=== PATIENT | male | born 1955 | race Caucasian/White ===

== ENCOUNTER 2022-03-08 18:27 | Inpatient (IN) ==
[2022-03-08 19:38] LABS: Basophils % 1.3 %; Hematocrit 33.6 % (37.5-50.1); Hemoglobin 11.5 g/dL (12.9-16.9); Immature Granulocytes % 2.6 % (0-4); Immature Platelets 4.9 % (1.1-6.1); Lymphocytes # 0.1 K/mcL (0.6-4.6); Mean Corpuscular HGB Conc 34.2 g/dL (31.6-35.5); Mean Corpuscular Hemoglobin 30.3 pg (28.0-33.3); Mean Corpuscular Volume 88.7 fL (83.0-100.0); Mean Platelet Volume 10.1 fL (9.4-12.4); Monocytes # 0.3 K/mcL (0.0-1.3); Monocytes % 10.7 %; Red Blood Count 3.79 M/mcL (4.19-5.50); Red Cell Distribution Width 13.3 % (11.5-14.5); Segmented Neutrophils % 79.4 %; White Blood Count 2.3 K/mcL (4.3-11.1)
[2022-03-08 19:51] LABS: Neutrophils # 1.8 K/mcL (1.6-8.9); Platelet Count 73 K/mcL (140-400)
[2022-03-08 19:53] LABS: Platelet Estimate Decreased (Normal)
[2022-03-08 19:58] LABS: Alanine Aminotransferase 8 Units/L (7-52); Albumin 3.4 g/dL (3.5-5.7); Albumin/Globulin Ratio 1.1 (1.1-2.2); Alkaline Phosphatase 65 Units/L (34-104); Aspartate Amino Transferase 9 Units/L (13-39); BUN/Creatinine Ratio 26 (6-26); Bilirubin,Total 0.9 mg/dL (0.3-1.0); Blood Urea Nitrogen 28 mg/dL (8-23); Calcium 9.3 mg/dL (8.6-10.3); Carbon Dioxide 22 mEq/L (23-29); Chloride 96 mEq/L (98-107); Glucose 115 mg/dL (70-105); Osmolality,Calculated 272 (280-300); Potassium 4.2 mEq/L (3.5-5.1); Sodium 128 mEq/L (136-145); Total Protein 6.4 g/dL (6.4-8.9); Troponin I < 0.03 ng/mL (< 0.04)
[2022-03-08 20:19] LABS: Amorphous Sediment,Urine Few per hpf (None-Few); Bacteria,Urine Few per hpf (None-Few); Bilirubin,Urine Negative (Negative); Blood,Urine Negative (Negative); Clarity,Urine Turbid (Clear); Color,Urine Orange (Yellow); Glucose,Urine (UA) 30 mg/dL (Normal); Hyaline Casts,Urine Many per lpf (None Seen); Ketones,Urine Negative (Negative); Leukocyte Esterase,Urine Negative (Negative); Mucus,Urine Moderate per lpf (None-Few); Nitrite,Urine Negative (Negative); PH,Urine 5.5 pH Units (5.0-8.0); Protein,Urine 70 mg/dL (Neg-Trace); Specific Gravity,Urine 1.029 (1.010-1.025); Squamous Epithelial Cell,Urine Few per hpf (None-Few); Urobilinogen,Urine Normal (Normal)
[2022-03-08 20:50] LABS: Influenza A PCR Negative (Negative); Influenza B PCR Negative (Negative); Resp. Syncytial Virus PCR Negative (Negative)
[2022-03-08 21:51] LABS: SARS-CoV-2 by PCR (In House) Negative (Negative)
[2022-03-08] MEDS ORDERED: Iopamidol - 370 500 ML MLS IVP ONE (23:06)
[2022-03-08] MEDS ORDERED: 0.9 % Sodium Chloride 1,000 ML IV ONE (23:06)
[2022-03-09] MEDS ORDERED: 0.9 % Sodium Chloride 1,000 ML IV ONE (00:49)
[2022-03-09] MEDS ORDERED: *HR* Heparin 5,000 UNIT/ML VIAL IVP ONE (04:43)
[2022-03-09] MEDS ORDERED: *HR* Heparin 5,000 UNIT/ML VIAL IVP PRN (04:43)
[2022-03-09] MEDS ORDERED: Ondansetron ODT 4 MG TAB.RAPDIS SL PRN (04:43)
[2022-03-09] MEDS ORDERED: Melatonin 3 MG TABLET PO PRN (04:43)
[2022-03-09] MEDS ORDERED: Naloxone 0.4 MG/ML INJ IVP PRN (04:43)
[2022-03-09] MEDS ORDERED: *HR* Metoprolol 5 MG/5 ML VIAL IVP ONE (05:06)
[2022-03-09] MEDS: 0.9 % Sodium Chloride 1,000 ML IVC SCH ×2 (05:15→17:10)
[2022-03-09] MEDS: Heparin 25,000UNIT/250ML 1/2NS 25,000 UNIT/250 ML IV.SOLN IVC SCH (05:15)
[2022-03-09] MEDS: Sucralfate 1 GM TABLET PO SCH ×2 (07:48→17:06)
[2022-03-09] MEDS ORDERED: Metoprolol XL (24 HR) Succ 25 MG TAB.ER.24H PO ONE (08:23)
[2022-03-09 08:25] LABS: Red Cell Distribution Width 13.4 % (11.5-14.5)
[2022-03-09 08:27] LABS: Hematocrit 30.9 % (37.5-50.1); Hemoglobin 10.5 g/dL (12.9-16.9); Immature Platelets 4.1 % (1.1-6.1); Mean Corpuscular Hemoglobin 30.5 pg (28.0-33.3); Mean Corpuscular Volume 89.8 fL (83.0-100.0); Mean Platelet Volume 10.3 fL (9.4-12.4); Red Blood Count 3.44 M/mcL (4.19-5.50); White Blood Count 1.6 K/mcL (4.3-11.1)
[2022-03-09 08:33] LABS: Heparin anti-factor XA UFH 0.22 IU/mL (0.30-0.70); INR 1.5
[2022-03-09 08:45] LABS: BUN/Creatinine Ratio 31 (6-26); Blood Urea Nitrogen 25 mg/dL (8-23); Calcium 8.8 mg/dL (8.6-10.3); Carbon Dioxide 20 mEq/L (23-29); Chloride 100 mEq/L (98-107); Glucose 97 mg/dL (70-105); Osmolality,Calculated 272 (280-300); Potassium 3.7 mEq/L (3.5-5.1); Sodium 129 mEq/L (136-145)
[2022-03-09] MEDS ORDERED: lisinopriL 5 MG TABLET PO SCH (09:00)
[2022-03-09] MEDS ORDERED: Metoprolol XL (24 HR) Succ 25 MG TAB.ER.24H PO SCH (09:00)
[2022-03-09] MEDS: Metoprolol XL (24 HR) Succ 25 MG TAB.ER.24H PO SCH (09:21)
[2022-03-09] MEDS: *HR* OxyCODONE/APAP 5/325 TABLET PO PRN ×2 (11:50→18:13)
[2022-03-09 13:19] LABS: C.difficile Toxin A/B Gene PCR Not detected (Not detect); Campylobacter by PCR Not detected (Not detect); Plesiomonas shigelloides PCR Not detected (Not detect); Salmonella PCR Not detected (Not detect); Vibrio PCR Not detected (Not detect)
[2022-03-09 13:20] LABS: Adenovirus F 40/41 PCR Not detected (Not detect); Astrovirus PCR Not detected (Not detect); Cryptosporidium by PCR Not detected (Not detect); Cyclospora cayetanensis PCR Not detected (Not detect); Entamoeba histolytica PCR Not detected (Not detect); Enteroaggregative E.coli(EAEC) Not detected (Not detect); Enteropathogenic E.coli(EPEC) Not detected (Not detect); Enterotoxigenic E.coli (ETEC) Not detected (Not detect); Giardia lamblia PCR Not detected (Not detect); Norovirus GI/GII PCR Not detected (Not detect); Rotavirus A PCR Not detected (Not detect); Sapovirus PCR Not detected (Not detect); Shig/EnteroinvasiveE coli EIEC Not detected (Not detect); Shigalike tox-prod E coli STEC Not detected (Not detect); Vibrio cholerae PCR Not detected (Not detect); Yersinia enterocolitica PCR Not detected (Not detect)
[2022-03-09] MEDS: *HR* Metoprolol 5 MG/5 ML VIAL IVP PRN (13:27)
[2022-03-09] MEDS: *HR* Heparin 5,000 UNIT/ML VIAL IVP PRN (13:30)
[2022-03-09 13:51] LABS: Magnesium 1.5 mg/dL (1.6-2.6)
[2022-03-09] MEDS: *HR* Digoxin 0.5 MG/2 ML AMPUL IVP SCH (18:17)
[2022-03-09] MEDS: Famotidine 20 MG TABLET PO SCH (20:05)
[2022-03-10] MEDS: *HR* Digoxin 0.5 MG/2 ML AMPUL IVP SCH ×2 (00:14→05:53)
[2022-03-10] MEDS: *HR* OxyCODONE/APAP 5/325 TABLET PO PRN ×2 (02:51→16:58)
[2022-03-10] MEDS: Heparin 25,000UNIT/250ML 1/2NS 25,000 UNIT/250 ML IV.SOLN IVC SCH (03:54)
[2022-03-10 06:14] LABS: Red Cell Distribution Width 13.6 % (11.5-14.5)
[2022-03-10 06:16] LABS: Hematocrit 24.6 % (37.5-50.1); Hemoglobin 8.5 g/dL (12.9-16.9); Immature Platelets 3.2 % (1.1-6.1); Mean Corpuscular HGB Conc 34.6 g/dL (31.6-35.5); Mean Corpuscular Volume 89.8 fL (83.0-100.0); Mean Platelet Volume 9.9 fL (9.4-12.4); Monocytes # 0.1 K/mcL (0.0-1.3); Red Blood Count 2.74 M/mcL (4.19-5.50); White Blood Count 1.5 K/mcL (4.3-11.1)
[2022-03-10 06:18] LABS: Platelet Count 56 K/mcL (140-400)
[2022-03-10 06:35] LABS: BUN/Creatinine Ratio 27 (6-26); Blood Urea Nitrogen 14 mg/dL (8-23); Calcium 7.6 mg/dL (8.6-10.3); Carbon Dioxide 22 mEq/L (23-29); Chloride 99 mEq/L (98-107); Glucose 76 mg/dL (70-105); Magnesium 1.7 mg/dL (1.6-2.6); Osmolality,Calculated 261 (280-300); Phosphorous 2.5 mg/dL (2.7-4.5); Potassium 3.2 mEq/L (3.5-5.1); Sodium 126 mEq/L (136-145)
[2022-03-10 06:43] LABS: Lymphocytes # 0.2 K/mcL (0.6-4.6); Neutrophils # 1.2 K/mcL (1.6-8.9); Platelet Estimate Decreased (Normal)
[2022-03-10] MEDS: *HR* Heparin 5,000 UNIT/ML VIAL IVP PRN (06:53)
[2022-03-10] MEDS ORDERED: ONDANSETRON 8 MG PO PRN (07:46)
[2022-03-10] MEDS: Loratadine 10 MG TABLET PO SCH (09:04)
[2022-03-10] MEDS: Metoprolol XL (24 HR) Succ 25 MG TAB.ER.24H PO SCH (09:04)
[2022-03-10] MEDS: Sucralfate 1 GM TABLET PO SCH ×2 (09:04→16:57)
[2022-03-10] MEDS: predniSONE 5 MG TABLET PO SCH ×2 (09:04→21:10)
[2022-03-10] MEDS ORDERED: levoFLOXacin 750 MG/150 ML 750 MG/150 ML BAG IVPB ONE (15:03)
[2022-03-10] MEDS: Magnesium Oxide 400 MG TABLET PO SCH ×2 (15:56→21:08)
[2022-03-10] MEDS: Budesonide Neb 0.5 MG/2 ML IH SCH ×2 (16:02→21:34)
[2022-03-10] MEDS: Ipratropium/Albuterol Neb 3 ML IH SCH ×2 (16:03→21:33)
[2022-03-10] MEDS ORDERED: 0.9 % Sodium Chloride 250 ML ONE (18:38)
[2022-03-10] MEDS ORDERED: Ringers Solution, Lactated 500 ML IVC ONE (19:24)
[2022-03-10] MEDS: Albumin Human 5% 12.5 GM/250 ML IV.SOLN IVC SCH (19:38)
[2022-03-10] MEDS: Famotidine 20 MG TABLET PO SCH (21:10)
[2022-03-10] MEDS: *HR* Rivaroxaban 15 MG TABLET PO SCH (21:10)
[2022-03-11] MEDS: Albumin Human 5% 12.5 GM/250 ML IV.SOLN IVC SCH (00:11)
[2022-03-11 01:24] LABS: Mean Corpuscular Volume 88.7 fL (83.0-100.0)
[2022-03-11 01:26] LABS: Hematocrit 22.7 % (37.5-50.1); Hemoglobin 7.9 g/dL (12.9-16.9); Immature Platelets 3.2 % (1.1-6.1); Lymphocytes # 0.1 K/mcL (0.6-4.6); Mean Corpuscular HGB Conc 34.8 g/dL (31.6-35.5); Mean Corpuscular Hemoglobin 30.9 pg (28.0-33.3); Mean Platelet Volume 10.2 fL (9.4-12.4); Monocytes # 0.1 K/mcL (0.0-1.3); Red Blood Count 2.56 M/mcL (4.19-5.50); Red Cell Distribution Width 13.3 % (11.5-14.5); White Blood Count 1.5 K/mcL (4.3-11.1)
[2022-03-11 01:56] LABS: BUN/Creatinine Ratio 21 (6-26); Blood Urea Nitrogen 11 mg/dL (8-23); Calcium 7.7 mg/dL (8.6-10.3); Carbon Dioxide 20 mEq/L (23-29); Chloride 97 mEq/L (98-107); Glucose 108 mg/dL (70-105); Magnesium 1.5 mg/dL (1.6-2.6); Osmolality,Calculated 260 (280-300); Phosphorous < 1.0 mg/dL (2.7-4.5); Potassium 3.3 mEq/L (3.5-5.1); Sodium 125 mEq/L (136-145)
[2022-03-11 02:01] LABS: Platelet Count 50 K/mcL (140-400)
[2022-03-11 02:04] LABS: Thyroid Stimulating Hormone 0.505 mcIU/mL (0.340-5.600)
[2022-03-11] MEDS ORDERED: Potassium Phosphate 44 MEQ in 0.9 % Sodium Chloride 250 ML IVPB ONE (02:15)
[2022-03-11 02:18] LABS: Platelet Estimate Decreased (Normal)
[2022-03-11 02:20] LABS: Neutrophils # 1.4 K/mcL (1.6-8.9)
[2022-03-11 02:21] LABS: Dohle Bodies Present (Not Present)
[2022-03-11] MEDS ORDERED: Ringers Solution, Lactated 500 ML IVC ONE (03:30)
[2022-03-11] MEDS: Acetaminophen 325 MG TABLET PO PRN ×3 (03:36→21:53)
[2022-03-11] MEDS: Ipratropium/Albuterol Neb 3 ML IH SCH ×4 (04:33→21:20)
[2022-03-11] MEDS: Phenylephrine 20 MG in 0.9 % Sodium Chloride 250 ML IVC SCH ×4 (05:43→21:21)
[2022-03-11] MEDS: Magnesium Oxide 400 MG TABLET PO SCH ×2 (07:44→21:13)
[2022-03-11] MEDS: Sucralfate 1 GM TABLET PO SCH ×2 (07:44→16:38)
[2022-03-11] MEDS: *HR* Digoxin 0.125 MG TABLET PO SCH (07:44)
[2022-03-11] MEDS: predniSONE 5 MG TABLET PO SCH ×2 (07:45→21:20)
[2022-03-11] MEDS: Loratadine 10 MG TABLET PO SCH (07:45)
[2022-03-11] MEDS: *HR* Rivaroxaban 15 MG TABLET PO SCH (08:34)
[2022-03-11] MEDS: Budesonide Neb 0.5 MG/2 ML IH SCH ×2 (09:54→21:20)
[2022-03-11] MEDS: Cefepime HCl 2,000 MG in 0.9 % Sodium Chloride 20 ML IVP SCH ×2 (10:12→16:38)
[2022-03-11] MEDS ORDERED: Amiodarone Premix 150 MG/100 ML BAG IVPB ONE (10:48)
[2022-03-11] MEDS ORDERED: Amiodarone Premix 360 MG/200 ML BAG IVC ONE (10:48)
[2022-03-11] MEDS: levoFLOXacin 750 MG/150 ML 750 MG/150 ML BAG IVPB SCH (16:38)
[2022-03-11] MEDS: Amiodarone Premix 360 MG/200 ML BAG IVC SCH (18:02)
[2022-03-11] MEDS: Famotidine 20 MG TABLET PO SCH (21:19)
[2022-03-11] MEDS: *HR* OxyCODONE/APAP 5/325 TABLET PO PRN (21:52)
[2022-03-12] MEDS: Cefepime HCl 2,000 MG in 0.9 % Sodium Chloride 20 ML IVP SCH ×4 (00:31→23:40)
[2022-03-12] MEDS: Phenylephrine 20 MG in 0.9 % Sodium Chloride 250 ML IVC SCH ×3 (00:32→06:12)
[2022-03-12 02:42] LABS: Hematocrit 24.5 % (37.5-50.1)
[2022-03-12 02:44] LABS: Hemoglobin 8.6 g/dL (12.9-16.9); Mean Corpuscular HGB Conc 35.1 g/dL (31.6-35.5); Mean Corpuscular Hemoglobin 30.9 pg (28.0-33.3); Mean Corpuscular Volume 88.1 fL (83.0-100.0); Mean Platelet Volume 10.1 fL (9.4-12.4); Monocytes # 0.2 K/mcL (0.0-1.3); Red Blood Count 2.78 M/mcL (4.19-5.50); Red Cell Distribution Width 13.8 % (11.5-14.5); White Blood Count 4.2 K/mcL (4.3-11.1)
[2022-03-12 02:58] LABS: BUN/Creatinine Ratio 20 (6-26); Blood Urea Nitrogen 10 mg/dL (8-23); Calcium 7.8 mg/dL (8.6-10.3); Carbon Dioxide 20 mEq/L (23-29); Chloride 99 mEq/L (98-107); Glucose 115 mg/dL (70-105); Osmolality,Calculated 266 (280-300); Potassium 3.3 mEq/L (3.5-5.1); Sodium 128 mEq/L (136-145)
[2022-03-12 03:13] LABS: Platelet Count 53 K/mcL (140-400)
[2022-03-12] MEDS: Ipratropium/Albuterol Neb 3 ML IH SCH ×4 (03:37→20:46)
[2022-03-12 04:17] LABS: Lymphocytes # 0.2 K/mcL (0.6-4.6); Neutrophils # 3.8 K/mcL (1.6-8.9); Platelet Estimate Decreased (Normal)
[2022-03-12] MEDS: Amiodarone Premix 360 MG/200 ML BAG IVC SCH ×2 (04:57→17:23)
[2022-03-12] MEDS ORDERED: Potassium Phosphate 44 MEQ in 0.9 % Sodium Chloride 250 ML IVPB ONE (05:32)
[2022-03-12] MEDS: Magnesium Oxide 400 MG TABLET PO SCH ×2 (07:44→19:46)
[2022-03-12] MEDS: *HR* Digoxin 0.125 MG TABLET PO SCH (07:44)
[2022-03-12] MEDS: Loratadine 10 MG TABLET PO SCH (07:45)
[2022-03-12] MEDS: Sucralfate 1 GM TABLET PO SCH ×2 (07:46→15:23)
[2022-03-12] MEDS: predniSONE 5 MG TABLET PO SCH ×2 (07:47→19:46)
[2022-03-12] MEDS: Budesonide Neb 0.5 MG/2 ML IH SCH ×2 (09:04→20:46)
[2022-03-12] MEDS: Phenylephrine 100 MG in 0.9 % Sodium Chloride 250 ML IVC SCH (09:48)
[2022-03-12 10:04] LABS: Magnesium 1.9 mg/dL (1.6-2.6); Phosphorous 2.7 mg/dL (2.7-4.5)
[2022-03-12] MEDS: levoFLOXacin 750 MG/150 ML 750 MG/150 ML BAG IVPB SCH (13:47)
[2022-03-12 16:19] LABS: BUN/Creatinine Ratio 25 (6-26); Blood Urea Nitrogen 13 mg/dL (8-23); Carbon Dioxide 21 mEq/L (23-29); Chloride 101 mEq/L (98-107); Glucose 151 mg/dL (70-105); Osmolality,Calculated 273 (280-300); Potassium 3.7 mEq/L (3.5-5.1); Sodium 130 mEq/L (136-145)
[2022-03-12] MEDS: *HR* OxyCODONE/APAP 5/325 TABLET PO PRN ×2 (16:52→23:41)
[2022-03-12] MEDS: Famotidine 20 MG TABLET PO SCH (19:45)
[2022-03-13 03:42] LABS: Basophils % 0.6 %; Eosinophils % 0.4 %; Mean Corpuscular HGB Conc 33.8 g/dL (31.6-35.5); Red Cell Distribution Width 14.1 % (11.5-14.5)
[2022-03-13] MEDS: Amiodarone Premix 360 MG/200 ML BAG IVC SCH (03:42)
[2022-03-13 03:44] LABS: Hematocrit 27.2 % (37.5-50.1); Hemoglobin 9.2 g/dL (12.9-16.9); Immature Granulocytes % 5.3 % (0-4); Immature Platelets 7.3 % (1.1-6.1); Lymphocytes # 0.2 K/mcL (0.6-4.6); Lymphocytes % 4.1 %; Mean Corpuscular Hemoglobin 30.6 pg (28.0-33.3); Mean Corpuscular Volume 90.4 fL (83.0-100.0); Mean Platelet Volume 11.5 fL (9.4-12.4); Monocytes # 0.2 K/mcL (0.0-1.3); Monocytes % 3.3 %; Neutrophils # 4.4 K/mcL (1.6-8.9); Nucleated Red Blood Cells 0.4 /100 WBC (0); Red Blood Count 3.01 M/mcL (4.19-5.50); Segmented Neutrophils % 86.3 %; White Blood Count 5.1 K/mcL (4.3-11.1)
[2022-03-13] MEDS: Ipratropium/Albuterol Neb 3 ML IH SCH ×4 (03:45→23:09)
[2022-03-13 03:46] LABS: Platelet Count 52 K/mcL (140-400)
[2022-03-13 03:47] LABS: BUN/Creatinine Ratio 31 (6-26); Blood Urea Nitrogen 15 mg/dL (8-23); Calcium 8.1 mg/dL (8.6-10.3); Carbon Dioxide 21 mEq/L (23-29); Chloride 101 mEq/L (98-107); Glucose 130 mg/dL (70-105); Magnesium 1.7 mg/dL (1.6-2.6); Osmolality,Calculated 273 (280-300); Sodium 130 mEq/L (136-145)
[2022-03-13 04:10] LABS: Hypochromasia Present (Not Present); Platelet Estimate Decreased (Normal)
[2022-03-13 05:45] LABS: A.calcoaceticus-baumannii cplx Not Detected (Not Detect); Bacteroides fragilis by PCR Not Detected (Not Detect); Candida albicans by PCR Not Detected (Not Detect); Candida auris by PCR Not Detected (Not Detect); Candida glabrata by PCR Not Detected (Not Detect); Candida krusei by PCR Not Detected (Not Detect); Candida parapsilosis by PCR Not Detected (Not Detect); Candida tropicalis by PCR Not Detected (Not Detect); Crypto. neoformans/gattii PCR Not Detected (Not Detect); Enterobacter cloacae Cmplx PCR Not Detected (Not Detect); Enterobacterales by PCR Not Detected (Not Detect); Enterococcus faecalis by PCR Not Detected (Not Detect); Enterococcus faecium by PCR Not Detected (Not Detect); Escherichia coli by PCR Not Detected (Not Detect); Klebs. pneumoniae group by PCR Not Detected (Not Detect); Klebsiella aerogenes by PCR Not Detected (Not Detect); Klebsiella oxytoca by PCR Not Detected (Not Detect); Proteus by PCR Not Detected (Not Detect); Pseudomonas aeruginosa by PCR Not Detected (Not Detect); Salmonella species by PCR Not Detected (Not Detect); Serratia marcescens by PCR Not Detected (Not Detect); Staph epidermidis by PCR Not Detected (Not Detect); Staph lugdunensis by PCR Not Detected (Not Detect); Staphylococcus aureus by PCR DETECTED (Not Detect); Staphylococcus by PCR Not Detected (Not Detect); Stenotrophomonas maltophilia Not Detected (Not Detect); Streptococcus agalactiae(B)PCR Not Detected (Not Detect); Streptococcus by PCR Not Detected (Not Detect); Streptococcus pneumoniae PCR Not Detected (Not Detect); Streptococcus pyogenes (A) PCR Not Detected (Not Detect); mecA/C & MREJ (MRSA) Gene Not Detected (Not Detect)
[2022-03-13] MEDS: *HR* OxyCODONE/APAP 5/325 TABLET PO PRN ×2 (07:57→17:49)
[2022-03-13] MEDS: *HR* Digoxin 0.125 MG TABLET PO SCH (07:58)
[2022-03-13] MEDS: predniSONE 5 MG TABLET PO SCH ×2 (07:58→20:04)
[2022-03-13] MEDS: Magnesium Oxide 400 MG TABLET PO SCH ×2 (07:58→20:04)
[2022-03-13] MEDS: Sucralfate 1 GM TABLET PO SCH ×2 (07:59→15:11)
[2022-03-13] MEDS: Cefepime HCl 2,000 MG in 0.9 % Sodium Chloride 20 ML IVP SCH (07:59)
[2022-03-13] MEDS: Loratadine 10 MG TABLET PO SCH (07:59)
[2022-03-13] MEDS: Phenylephrine 100 MG in 0.9 % Sodium Chloride 250 ML IVC SCH (10:31)
[2022-03-13] MEDS: Budesonide Neb 0.5 MG/2 ML IH SCH ×2 (10:45→23:09)
[2022-03-13] MEDS: CeFAZolin 2,000 MG/120 ML BAG IVPB SCH ×2 (15:52→23:07)
[2022-03-13] MEDS: Nicotine 21 MG PATCH.TD24 TD SCH (17:48)
[2022-03-13] MEDS: Famotidine 20 MG TABLET PO SCH (20:04)
[2022-03-14 03:32] LABS: Hematocrit 28.5 % (37.5-50.1)
[2022-03-14 03:34] LABS: Hemoglobin 9.8 g/dL (12.9-16.9); Immature Platelets 9.9 % (1.1-6.1); Mean Corpuscular HGB Conc 34.4 g/dL (31.6-35.5); Mean Corpuscular Hemoglobin 30.4 pg (28.0-33.3); Mean Corpuscular Volume 88.5 fL (83.0-100.0); Mean Platelet Volume 10.8 fL (9.4-12.4); Platelet Count 68 K/mcL (140-400); Red Blood Count 3.22 M/mcL (4.19-5.50); Red Cell Distribution Width 14.6 % (11.5-14.5); White Blood Count 4.8 K/mcL (4.3-11.1)
[2022-03-14 03:39] LABS: INR 1.4; Prothrombin Time 15.1 Seconds (9.4-12.1)
[2022-03-14 03:52] LABS: Alanine Aminotransferase 16 Units/L (7-52); Albumin 2.6 g/dL (3.5-5.7); Alkaline Phosphatase 75 Units/L (34-104); Aspartate Amino Transferase 14 Units/L (13-39); BUN/Creatinine Ratio 26 (6-26); Bilirubin,Total 0.6 mg/dL (0.3-1.0); Blood Urea Nitrogen 14 mg/dL (8-23); Calcium 8.5 mg/dL (8.6-10.3); Carbon Dioxide 23 mEq/L (23-29); Chloride 100 mEq/L (98-107); Globulin 2.7 g/dL (2.4-3.5); Glucose 114 mg/dL (70-105); Magnesium 1.7 mg/dL (1.6-2.6); Osmolality,Calculated 271 (280-300); Phosphorous 1.7 mg/dL (2.7-4.5); Potassium 3.8 mEq/L (3.5-5.1); Sodium 130 mEq/L (136-145); Total Protein 5.3 g/dL (6.4-8.9)
[2022-03-14] MEDS: Ipratropium/Albuterol Neb 3 ML IH SCH ×4 (04:09→23:06)
[2022-03-14 04:32] LABS: Lymphocytes # 0.2 K/mcL (0.6-4.6); Monocytes # 0.1 K/mcL (0.0-1.3); Neutrophils # 4.4 K/mcL (1.6-8.9); Platelet Estimate Decreased (Normal)
[2022-03-14] MEDS: *HR* Metoprolol 5 MG/5 ML VIAL IVP PRN (04:36)
[2022-03-14] MEDS ORDERED: Potassium Phosphate 44 MEQ in 0.9 % Sodium Chloride 250 ML IVPB PRN (07:46)
[2022-03-14] MEDS ORDERED: Calcium Gluconate 1gm/50mL 1 GM/50 ML BAG IVPB PRN (07:46)
[2022-03-14] MEDS: Loratadine 10 MG TABLET PO SCH (08:23)
[2022-03-14] MEDS: *HR* Digoxin 0.25 MG TABLET PO SCH (08:23)
[2022-03-14] MEDS: *HR* OxyCODONE/APAP 5/325 TABLET PO PRN ×2 (08:23→16:25)
[2022-03-14] MEDS: Magnesium Oxide 400 MG TABLET PO SCH ×2 (08:23→20:10)
[2022-03-14] MEDS: Sucralfate 1 GM TABLET PO SCH ×2 (08:23→16:25)
[2022-03-14] MEDS: predniSONE 5 MG TABLET PO SCH ×2 (08:23→20:10)
[2022-03-14] MEDS: CeFAZolin 2,000 MG/120 ML BAG IVPB SCH ×3 (08:41→23:03)
[2022-03-14] MEDS: Phenylephrine 100 MG in 0.9 % Sodium Chloride 250 ML IVC SCH (10:24)
[2022-03-14] MEDS: Budesonide Neb 0.5 MG/2 ML IH SCH ×2 (10:40→23:06)
[2022-03-14 11:59] LABS: VBG Ionized Calcium 1.16 mmol/L (1.15-1.35)
[2022-03-14] MEDS ORDERED: *HR* Heparin 10,000 UNIT/10 ML VIAL ONE (12:40)
[2022-03-14] MEDS ORDERED: Heparin 1,000 UNITS/500 mL 500 ML ONE (12:40)
[2022-03-14] MEDS ORDERED: 0.9 % Sodium Chloride 1,000 ML ONE ×2 (12:40→12:46)
[2022-03-14] MEDS ORDERED: Iopamidol - 300 100 ML INFUS..BTL ONE (12:40)
[2022-03-14] MEDS: Nicotine 21 MG PATCH.TD24 TD SCH (16:26)
[2022-03-14] MEDS: Famotidine 20 MG TABLET PO SCH (20:10)
[2022-03-15 03:20] LABS: Red Cell Distribution Width 14.6 % (11.5-14.5); White Blood Count 4.3 K/mcL (4.3-11.1)
[2022-03-15 03:22] LABS: Hematocrit 27.4 % (37.5-50.1); Hemoglobin 9.4 g/dL (12.9-16.9); Immature Platelets 8.5 % (1.1-6.1); Mean Corpuscular HGB Conc 34.3 g/dL (31.6-35.5); Mean Corpuscular Hemoglobin 30.7 pg (28.0-33.3); Mean Corpuscular Volume 89.5 fL (83.0-100.0); Mean Platelet Volume 11.2 fL (9.4-12.4); Monocytes # 0.3 K/mcL (0.0-1.3); Red Blood Count 3.06 M/mcL (4.19-5.50)
[2022-03-15 03:27] LABS: INR 1.3; Prothrombin Time 14.7 Seconds (9.4-12.1)
[2022-03-15 03:38] LABS: BUN/Creatinine Ratio 23 (6-26); Blood Urea Nitrogen 13 mg/dL (8-23); Calcium 8.3 mg/dL (8.6-10.3); Carbon Dioxide 24 mEq/L (23-29); Chloride 102 mEq/L (98-107); Glucose 93 mg/dL (70-105); Magnesium 1.9 mg/dL (1.6-2.6); Osmolality,Calculated 274 (280-300); Phosphorous 3.2 mg/dL (2.7-4.5); Potassium 3.9 mEq/L (3.5-5.1); Sodium 132 mEq/L (136-145)
[2022-03-15] MEDS: Ipratropium/Albuterol Neb 3 ML IH SCH ×4 (03:50→23:29)
[2022-03-15 04:38] LABS: Platelet Count 73 K/mcL (140-400)
[2022-03-15 05:32] LABS: Lymphocytes # 0.7 K/mcL (0.6-4.6); Neutrophils # 3.4 K/mcL (1.6-8.9); Platelet Estimate Decreased (Normal)
[2022-03-15] MEDS ORDERED: Heparin 1,000 UNITS/500 mL 500 ML ONE (09:41)
[2022-03-15] MEDS: Budesonide Neb 0.5 MG/2 ML IH SCH ×2 (09:55→23:29)
[2022-03-15] MEDS ORDERED: Lidocaine Viscous Oral Soln 15 ML SOLUTION MM PRN (13:00)
[2022-03-15] MEDS ORDERED: *HR* FentaNYL (PF) 100 MCG/2 ML VIAL IVP PRN (13:00)
[2022-03-15] MEDS ORDERED: 0.9 % Sodium Chloride 500 ML IVC ONE (13:01)
[2022-03-15] MEDS ORDERED: *HR* Midazolam HCl 5 MG/5 ML VIAL IVP PRN (13:01)
[2022-03-15] MEDS: *HR* OxyCODONE/APAP 5/325 TABLET PO PRN ×2 (14:30→15:49)
[2022-03-15] MEDS: Sucralfate 1 GM TABLET PO SCH ×2 (15:34→16:31)
[2022-03-15] MEDS: CeFAZolin 2,000 MG/120 ML BAG IVPB SCH ×2 (15:35→18:29)
[2022-03-15] MEDS: Magnesium Oxide 400 MG TABLET PO SCH ×2 (15:35→21:40)
[2022-03-15] MEDS: predniSONE 5 MG TABLET PO SCH ×2 (15:46→21:40)
[2022-03-15] MEDS: Loratadine 10 MG TABLET PO SCH (15:50)
[2022-03-15] MEDS: Nicotine 21 MG PATCH.TD24 TD SCH (16:09)
[2022-03-15] MEDS ORDERED: Furosemide 20 MG/2 ML VIAL IVP ONE (16:11)
[2022-03-15] MEDS: *HR* Digoxin 0.25 MG TABLET PO SCH (16:13)
[2022-03-15] MEDS: Phenylephrine 100 MG in 0.9 % Sodium Chloride 250 ML IVC SCH (19:40)
[2022-03-15 20:21] LABS: Bilirubin,Urine Negative (Negative); Blood,Urine Negative (Negative); Clarity,Urine Clear (Clear); Color,Urine Light-Yellow (Yellow); Glucose,Urine (UA) Normal (Normal); Ketones,Urine Negative (Negative); Leukocyte Esterase,Urine Negative (Negative); Nitrite,Urine Negative (Negative); PH,Urine 6.5 pH Units (5.0-8.0); Protein,Urine Negative (Neg-Trace); Specific Gravity,Urine 1.016 (1.010-1.025); Urobilinogen,Urine Normal (Normal)
[2022-03-15] MEDS: Famotidine 20 MG TABLET PO SCH (21:40)
[2022-03-16] MEDS: CeFAZolin 2,000 MG/120 ML BAG IVPB SCH ×3 (00:32→15:38)
[2022-03-16] MEDS: Ipratropium/Albuterol Neb 3 ML IH SCH ×4 (04:21→21:03)
[2022-03-16 06:06] LABS: Basophils % 0.3 %; Nucleated Red Blood Cells 0.5 /100 WBC (0)
[2022-03-16 06:08] LABS: Eosinophils % 0.3 %; Hematocrit 24.5 % (37.5-50.1); Hemoglobin 8.3 g/dL (12.9-16.9); Immature Granulocytes % 4.5 % (0-4); Immature Platelets 6.9 % (1.1-6.1); Lymphocytes # 0.4 K/mcL (0.6-4.6); Lymphocytes % 11.7 %; Mean Corpuscular HGB Conc 33.9 g/dL (31.6-35.5); Mean Corpuscular Hemoglobin 30.5 pg (28.0-33.3); Mean Corpuscular Volume 90.1 fL (83.0-100.0); Mean Platelet Volume 11.1 fL (9.4-12.4); Monocytes # 0.3 K/mcL (0.0-1.3); Monocytes % 8.5 %; Neutrophils # 2.8 K/mcL (1.6-8.9); Red Blood Count 2.72 M/mcL (4.19-5.50); Red Cell Distribution Width 14.9 % (11.5-14.5); Segmented Neutrophils % 74.7 %; White Blood Count 3.8 K/mcL (4.3-11.1)
[2022-03-16 06:18] LABS: Platelet Count 78 K/mcL (140-400)
[2022-03-16 06:36] LABS: Alanine Aminotransferase 10 Units/L (7-52); Albumin 2.4 g/dL (3.5-5.7); Albumin/Globulin Ratio 1.1 (1.1-2.2); Alkaline Phosphatase 72 Units/L (34-104); Aspartate Amino Transferase 12 Units/L (13-39); BUN/Creatinine Ratio 24 (6-26); Bilirubin,Total 0.6 mg/dL (0.3-1.0); Blood Urea Nitrogen 12 mg/dL (8-23); Calcium 8.1 mg/dL (8.6-10.3); Carbon Dioxide 24 mEq/L (23-29); Chloride 101 mEq/L (98-107); Globulin 2.2 g/dL (2.4-3.5); Glucose 107 mg/dL (70-105); Magnesium 1.7 mg/dL (1.6-2.6); Osmolality,Calculated 274 (280-300); Phosphorous 3.5 mg/dL (2.7-4.5); Potassium 3.9 mEq/L (3.5-5.1); Sodium 132 mEq/L (136-145); Total Protein 4.6 g/dL (6.4-8.9)
[2022-03-16] MEDS: Magnesium Oxide 400 MG TABLET PO SCH ×2 (08:53→20:47)
[2022-03-16] MEDS: Loratadine 10 MG TABLET PO SCH (08:53)
[2022-03-16] MEDS: predniSONE 5 MG TABLET PO SCH ×2 (08:54→20:41)
[2022-03-16] MEDS: Sucralfate 1 GM TABLET PO SCH ×2 (08:54→15:38)
[2022-03-16] MEDS: *HR* Digoxin 0.25 MG TABLET PO SCH (08:54)
[2022-03-16] MEDS: *HR* OxyCODONE/APAP 5/325 TABLET PO PRN (09:11)
[2022-03-16] MEDS ORDERED: *HR* OxyCODONE/APAP 5/325 TABLET PO PRN (09:26)
[2022-03-16] MEDS: Budesonide Neb 0.5 MG/2 ML IH SCH ×2 (10:42→21:03)
[2022-03-16] MEDS ORDERED: Furosemide 40 MG/4 ML VIAL IVP ONE (11:50)
[2022-03-16] MEDS ORDERED: Lidocaine -MPF 1% 5 ML AMPUL INFILT ONE (12:03)
[2022-03-16 16:17] LABS: Immature Reticulocyte % 32.9 % (11.0-38.0); Retculocyte # 0.04 M/mcL (0.05-0.10); Reticulocyte % 1.2 % (1.6-2.8)
[2022-03-16 16:49] LABS: Thyroid Stimulating Hormone 4.09 mcIU/mL (0.340-5.600)
[2022-03-16] MEDS: Nicotine 21 MG PATCH.TD24 TD SCH (18:56)
[2022-03-16] MEDS: Famotidine 20 MG TABLET PO SCH (20:41)
[2022-03-16] MEDS: Metoprolol XL (24 HR) Succ 25 MG TAB.ER.24H PO SCH (20:41)
[2022-03-16 21:07] LABS: Bacteria,Urine Few per hpf (None-Few); Bilirubin,Urine Negative (Negative); Blood,Urine Large (Negative); Clarity,Urine Turbid (Clear); Color,Urine Colorless (Yellow); Glucose,Urine (UA) Normal (Normal); Ketones,Urine Negative (Negative); Leukocyte Esterase,Urine Trace (Negative); Nitrite,Urine Negative (Negative); Protein,Urine 30 mg/dL (Neg-Trace); RBC,Urine TNTC per hpf (0-3); Specific Gravity,Urine 1.011 (1.010-1.025); Sperm,Urine Present per hpf (None Seen); Urobilinogen,Urine Normal (Normal); WBC,Urine 15-30 per hpf (0-3)
[2022-03-17] MEDS: CeFAZolin 2,000 MG/120 ML BAG IVPB SCH ×3 (00:14→15:44)
[2022-03-17] MEDS: Ipratropium/Albuterol Neb 3 ML IH SCH ×3 (03:53→15:22)
[2022-03-17 06:43] LABS: Basophils % 0.3 %; Eosinophils % 0.3 %; Lymphocytes % 12.9 %; Mean Corpuscular Volume 91.9 fL (83.0-100.0); Mean Platelet Volume 10.9 fL (9.4-12.4)
[2022-03-17 06:45] LABS: Hematocrit 23.9 % (37.5-50.1); Hemoglobin 7.9 g/dL (12.9-16.9); Immature Granulocytes % 5.9 % (0-4); Immature Platelets 6.9 % (1.1-6.1); Lymphocytes # 0.5 K/mcL (0.6-4.6); Mean Corpuscular HGB Conc 33.1 g/dL (31.6-35.5); Mean Corpuscular Hemoglobin 30.4 pg (28.0-33.3); Monocytes # 0.4 K/mcL (0.0-1.3); Monocytes % 9.5 %; Neutrophils # 2.8 K/mcL (1.6-8.9); Red Cell Distribution Width 15.1 % (11.5-14.5); Segmented Neutrophils % 71.1 %; White Blood Count 3.9 K/mcL (4.3-11.1)
[2022-03-17 06:51] LABS: Platelet Count 83 K/mcL (140-400)
[2022-03-17 06:53] LABS: BUN/Creatinine Ratio 17 (6-26); Blood Urea Nitrogen 10 mg/dL (8-23); Calcium 8.2 mg/dL (8.6-10.3); Carbon Dioxide 28 mEq/L (23-29); Chloride 100 mEq/L (98-107); Glucose 113 mg/dL (70-105); Magnesium 1.8 mg/dL (1.6-2.6); Osmolality,Calculated 272 (280-300); Potassium 4.2 mEq/L (3.5-5.1); Sodium 131 mEq/L (136-145)
[2022-03-17 07:12] LABS: Platelet Estimate Decreased (Normal); Reactive Lymphocytes Present (Not Present)
[2022-03-17] MEDS: Metoprolol XL (24 HR) Succ 25 MG TAB.ER.24H PO SCH (08:44)
[2022-03-17] MEDS: Magnesium Oxide 400 MG TABLET PO SCH (08:44)
[2022-03-17] MEDS: Sucralfate 1 GM TABLET PO SCH ×2 (08:44→15:09)
[2022-03-17] MEDS: *HR* Digoxin 0.25 MG TABLET PO SCH (08:45)
[2022-03-17] MEDS: predniSONE 5 MG TABLET PO SCH (08:45)
[2022-03-17] MEDS: Loratadine 10 MG TABLET PO SCH (08:45)
[2022-03-17 09:19] LABS: Digoxin 0.7 ng/mL (0.8-2.0)
[2022-03-17] MEDS: Budesonide Neb 0.5 MG/2 ML IH SCH (11:25)
[2022-03-17 16:13] VITALS: BP 112/73; PULSE 65; TEMP 97.7; O2SAT 98
== END 2022-03-17 18:30 | disposition home health service (06) | DRG 270 ==
LOC: 2NNU 18:27 → EMEROOARM 18:27 → SUATTDRO 03-09 03:57 → 2NNU 03-09 04:30 → SUATTDRO 03-10 12:44 → ICNU 03-11 12:12 → 2ANU 03-15 14:50
PROVIDERS: ADMIT Internal Medicine; ATTEND Internal Medicine

== ENCOUNTER 2022-04-14 15:16 | Inpatient (IN) ==
[2022-04-14 22:00] LABS: Basophils % 0.2 %; Eosinophils # 0.1 K/mcL (0.0-0.6); Eosinophils % 1.3 %; Hematocrit 23.7 % (37.5-50.1); Hemoglobin 7.7 g/dL (12.9-16.9); Immature Granulocytes % 2.6 % (0-4); Lymphocytes # 0.5 K/mcL (0.6-4.6); Mean Corpuscular HGB Conc 32.5 g/dL (31.6-35.5); Mean Corpuscular Hemoglobin 31.3 pg (28.0-33.3); Mean Corpuscular Volume 96.3 fL (83.0-100.0); Mean Platelet Volume 9.8 fL (9.4-12.4); Monocytes # 0.4 K/mcL (0.0-1.3); Monocytes % 4.3 %; Neutrophils # 7.4 K/mcL (1.6-8.9); Platelet Count 112 K/mcL (140-400); Red Blood Count 2.46 M/mcL (4.19-5.50); Red Cell Distribution Width 19.4 % (11.5-14.5); Segmented Neutrophils % 85.6 %; White Blood Count 8.6 K/mcL (4.3-11.1)
[2022-04-14 22:23] LABS: Alanine Aminotransferase 8 Units/L (7-52); Albumin 2.9 g/dL (3.5-5.7); Alkaline Phosphatase 96 Units/L (34-104); Aspartate Amino Transferase 10 Units/L (13-39); BUN/Creatinine Ratio 21 (6-26); Bilirubin,Direct 0.5 mg/dL (0.0-0.2); Bilirubin,Indirect 0.7 mg/dL (0.0-1.0); Bilirubin,Total 1.2 mg/dL (0.3-1.0); Blood Urea Nitrogen 18 mg/dL (8-23); Calcium 8.3 mg/dL (8.6-10.3); Carbon Dioxide 20 mEq/L (23-29); Chloride 94 mEq/L (98-107); Globulin 2.9 g/dL (2.4-3.5); Glucose 123 mg/dL (70-105); Lipase 3 Units/L (11-82); Magnesium 1.5 mg/dL (1.6-2.6); Osmolality,Calculated 259 (280-300); Potassium 4.1 mEq/L (3.5-5.1); Sodium 123 mEq/L (136-145); Total Protein 5.8 g/dL (6.4-8.9); Troponin I < 0.03 ng/mL (< 0.04)
[2022-04-14] MEDS ORDERED: Cefepime HCl 2,000 MG in 0.9 % Sodium Chloride 10 ML IVP ONE (22:30)
[2022-04-14] MEDS ORDERED: Naloxone 0.4 MG/ML INJ IVP PRN (23:22)
[2022-04-14] MEDS ORDERED: Ondansetron ODT 4 MG TAB.RAPDIS SL PRN (23:22)
[2022-04-14] MEDS ORDERED: Melatonin 3 MG TABLET PO PRN (23:22)
[2022-04-14] MEDS ORDERED: Ringers Solution, Lactated 1,000 ML IVC SCH (23:45)
[2022-04-15 00:23] LABS: Influenza A PCR Negative (Negative); Influenza B PCR Negative (Negative); Resp. Syncytial Virus PCR Negative (Negative)
[2022-04-15 00:24] LABS: SARS-CoV-2 by PCR (In House) Negative (Negative)
[2022-04-15] MEDS: MetroNIDAZOLE 500 MG/100 ML 500 MG/100 ML BAG IVPB SCH ×3 (02:22→16:13)
[2022-04-15] MEDS ORDERED: Ringers Solution, Lactated 1,000 ML IVC SCH (03:00)
[2022-04-15 04:08] LABS: Basophils % 0.2 %; Immature Granulocytes % 2.2 % (0-4); Mean Corpuscular Volume 95.5 fL (83.0-100.0)
[2022-04-15 04:11] LABS: Eosinophils # 0.2 K/mcL (0.0-0.6); Eosinophils % 3.1 %; Hematocrit 21.4 % (37.5-50.1); Hemoglobin 6.8 g/dL (12.9-16.9); Immature Platelets 2.7 % (1.1-6.1); Lymphocytes # 0.4 K/mcL (0.6-4.6); Lymphocytes % 8.1 %; Mean Corpuscular HGB Conc 31.8 g/dL (31.6-35.5); Mean Corpuscular Hemoglobin 30.4 pg (28.0-33.3); Mean Platelet Volume 10.3 fL (9.4-12.4); Monocytes # 0.3 K/mcL (0.0-1.3); Monocytes % 4.8 %; Neutrophils # 4.4 K/mcL (1.6-8.9); Platelet Count 104 K/mcL (140-400); Red Blood Count 2.24 M/mcL (4.19-5.50); Red Cell Distribution Width 19.5 % (11.5-14.5); Segmented Neutrophils % 81.6 %; White Blood Count 5.4 K/mcL (4.3-11.1)
[2022-04-15 04:28] LABS: Alanine Aminotransferase 6 Units/L (7-52); Albumin 2.5 g/dL (3.5-5.7); Alkaline Phosphatase 83 Units/L (34-104); Aspartate Amino Transferase 9 Units/L (13-39); BUN/Creatinine Ratio 23 (6-26); Blood Urea Nitrogen 17 mg/dL (8-23); Calcium 8.1 mg/dL (8.6-10.3); Carbon Dioxide 23 mEq/L (23-29); Chloride 96 mEq/L (98-107); Globulin 2.6 g/dL (2.4-3.5); Glucose 105 mg/dL (70-105); Magnesium 2.2 mg/dL (1.6-2.6); Osmolality,Calculated 262 (280-300); Phosphorous 3.3 mg/dL (2.7-4.5); Potassium 3.9 mEq/L (3.5-5.1); Sodium 125 mEq/L (136-145); Total Protein 5.1 g/dL (6.4-8.9)
[2022-04-15] MEDS ORDERED: Ringers Solution, Lactated 500 ML IVC ONE (05:29)
[2022-04-15] MEDS ORDERED: *HR* Heparin 5,000 UNIT/ML VIAL SQ SCH (06:00)
[2022-04-15] MEDS: predniSONE 20 MG TABLET PO SCH (08:59)
[2022-04-15] MEDS ORDERED: Iron Sucrose Complex 200 MG in 0.9 % Sodium Chloride 100 ML IVPB SCH ×2 (09:00→15:00)
[2022-04-15] MEDS: Cefepime HCl 1,000 MG in 0.9 % Sodium Chloride 10 ML IVP SCH ×2 (09:00→16:11)
[2022-04-15 09:17] LABS: Hematocrit 20.5 % (37.5-50.1); Hemoglobin 6.8 g/dL (12.9-16.9)
[2022-04-15 09:22] LABS: Bacteria,Urine Few per hpf (None-Few); Bilirubin,Urine Negative (Negative); Blood,Urine Trace (Negative); Clarity,Urine Turbid (Clear); Color,Urine Light-Orange (Yellow); Glucose,Urine (UA) Normal (Normal); Hyaline Casts,Urine Few per lpf (None Seen); Ketones,Urine Negative (Negative); Leukocyte Esterase,Urine Negative (Negative); Mucus,Urine Many per lpf (None-Few); Nitrite,Urine Negative (Negative); Protein,Urine 100 mg/dL (Neg-Trace); Specific Gravity,Urine > 1.030 (1.010-1.025); Squamous Epithelial Cell,Urine Few per hpf (None-Few); Urobilinogen,Urine Normal (Normal)
[2022-04-15] MEDS ORDERED: 0.9 % Sodium Chloride 250 ML ONE (10:08)
[2022-04-15] MEDS: 0.9 % Sodium Chloride 1,000 ML IVC SCH ×3 (10:52→16:56)
[2022-04-15 14:37] LABS: BUN/Creatinine Ratio 28 (6-26); Blood Urea Nitrogen 15 mg/dL (8-23); Calcium 7.7 mg/dL (8.6-10.3); Carbon Dioxide 22 mEq/L (23-29); Chloride 97 mEq/L (98-107); Glucose 138 mg/dL (70-105); Osmolality,Calculated 261 (280-300); Potassium 3.8 mEq/L (3.5-5.1); Sodium 124 mEq/L (136-145)
[2022-04-15 19:14] LABS: Hematocrit 22.9 % (37.5-50.1); Hemoglobin 7.5 g/dL (12.9-16.9)
[2022-04-15 22:57] LABS: BUN/Creatinine Ratio 35 (6-26); Blood Urea Nitrogen 16 mg/dL (8-23); Carbon Dioxide 22 mEq/L (23-29); Chloride 101 mEq/L (98-107); Glucose 160 mg/dL (70-105); Osmolality,Calculated 271 (280-300); Potassium 3.7 mEq/L (3.5-5.1); Sodium 128 mEq/L (136-145)
[2022-04-16] MEDS: MetroNIDAZOLE 500 MG/100 ML 500 MG/100 ML BAG IVPB SCH ×2 (00:49→09:11)
[2022-04-16] MEDS: Cefepime HCl 1,000 MG in 0.9 % Sodium Chloride 10 ML IVP SCH ×2 (00:51→09:09)
[2022-04-16] MEDS: 0.9 % Sodium Chloride 1,000 ML IVC SCH (00:52)
[2022-04-16 05:35] LABS: BUN/Creatinine Ratio 29 (6-26); Blood Urea Nitrogen 14 mg/dL (8-23); Calcium 7.8 mg/dL (8.6-10.3); Carbon Dioxide 22 mEq/L (23-29); Chloride 101 mEq/L (98-107); Glucose 112 mg/dL (70-105); Magnesium 1.8 mg/dL (1.6-2.6); Osmolality,Calculated 267 (280-300); Potassium 3.6 mEq/L (3.5-5.1); Sodium 128 mEq/L (136-145)
[2022-04-16] MEDS ORDERED: Sennosides/Docusate Sodium TABLET PO PRN (07:39)
[2022-04-16] MEDS ORDERED: *HR* OxyCODONE/APAP 10/325 TABLET PO PRN (07:39)
[2022-04-16 08:19] LABS: Basophils % 0.2 %; Hemoglobin 7.2 g/dL (12.9-16.9)
[2022-04-16 08:21] LABS: Eosinophils # 0.3 K/mcL (0.0-0.6); Eosinophils % 5.2 %; Immature Granulocytes % 1.4 % (0-4); Immature Platelets 3.8 % (1.1-6.1); Lymphocytes # 0.5 K/mcL (0.6-4.6); Mean Corpuscular HGB Conc 32.7 g/dL (31.6-35.5); Mean Corpuscular Volume 94.8 fL (83.0-100.0); Mean Platelet Volume 10.3 fL (9.4-12.4); Monocytes # 0.2 K/mcL (0.0-1.3); Neutrophils # 4.7 K/mcL (1.6-8.9); Nucleated Red Blood Cells 0.3 /100 WBC (0); Red Blood Count 2.32 M/mcL (4.19-5.50); Segmented Neutrophils % 81.2 %; White Blood Count 5.8 K/mcL (4.3-11.1)
[2022-04-16 08:23] LABS: Platelet Count 59 K/mcL (140-400)
[2022-04-16] MEDS ORDERED: Sucralfate 1 GM TABLET PO SCH (09:00)
[2022-04-16] MEDS ORDERED: Loratadine 10 MG TABLET PO SCH (09:00)
[2022-04-16] MEDS ORDERED: *HR* Digoxin 0.25 MG TABLET PO SCH (09:00)
[2022-04-16] MEDS ORDERED: Metoprolol XL (24 HR) Succ 25 MG TAB.ER.24H PO SCH (09:00)
[2022-04-16] MEDS: predniSONE 20 MG TABLET PO SCH (09:08)
[2022-04-16] MEDS ORDERED: Budesonide/Formoterol 160/4.5 1 PUFF INH IH SCH (10:00)
[2022-04-16] MEDS ORDERED: OLODATEROL HCL IH SCH (10:00)
[2022-04-16] MEDS ORDERED: TIOTROPIUM BR IH SCH (10:00)
[2022-04-16 11:11] VITALS: BP 97/61; PULSE 88; TEMP 97.6; O2SAT 94
== END 2022-04-16 11:43 | disposition home health service (06) | DRG 872 ==
LOC: 4WAOSI 15:16 → EMEROOARM 15:16 → SUATTDRO 23:51 → OBSVTOIN 23:51 → 3BNU 04-15 00:05
PROVIDERS: ADMIT Internal Medicine; ATTEND Internal Medicine